=== PATIENT | female | born 2000 | race Caucasian/White ===

== ENCOUNTER 2021-11-13 02:49 | Emergency (ER) | payer OTHER, BC ==
[2021-11-13] MEDS ORDERED: Acetaminophen 500 MG TAB ONE (03:15)
[2021-11-13] MEDS ORDERED: Ketorolac Tromethamine 30 MG/ML VIAL ONE (03:15)
== END 2021-11-13 04:20 | disposition home or self-care (01) ==
LOC: ERS 02:49
DX: S82.842A Displaced bimalleolar fracture of left lower leg, initial encounter for closed fracture (principal); W01.0XXA Fall on same level from slipping, tripping and stumbling without subsequent striking against object, initial encounter
CPT/HCPCS: 27810; 96374; J1885